=== PATIENT | female | born 1945 | race Caucasian/White ===

== ENCOUNTER → 2024-01-06 09:25 | Outpatient (REF) | payer MEDICARE, OTHER, SELFPAY | LOC: WDC 09:25 | PROVIDERS: ATTENDING PHYSICIAN Physician Assistant | DX: R92.8 Other abnormal and inconclusive findings on diagnostic imaging of breast (principal); N63.20 Unspecified lump in the left breast, unspecified quadrant | CPT/HCPCS: 76642; 77062; 77066 ==

== ENCOUNTER → 2024-01-13 11:18 | Outpatient (REF) | payer MEDICARE, OTHER, SELFPAY | LOC: WDC 11:18 | PROVIDERS: ATTENDING PHYSICIAN Physician Assistant | DX: N63.22 Unspecified lump in the left breast, upper inner quadrant (principal) | CPT/HCPCS: 88305; 19083; 77065; 88341; 88360; A4648 ==

== ENCOUNTER → 2024-01-27 09:40 | Outpatient (REF) | payer MEDICARE, OTHER, SELFPAY | LOC: HWRAD 09:40 | PROVIDERS: FAMILY PHYSICIAN Physician Assistant | DX: D17.21 Benign lipomatous neoplasm of skin and subcutaneous tissue of right arm (principal); R22.31 Localized swelling, mass and lump, right upper limb | CPT/HCPCS: 76882 ==

== ENCOUNTER 2024-03-23 22:45 | Emergency (ER) | payer MEDICARE, OTHER, SELFPAY ==
[2024-03-23 22:48] VITALS: BP 149/71
[2024-03-24 00:12] VITALS: BP 114/69
[2024-03-24 00:16] VITALS: BP 114/69
[2024-03-24 00:34] LABS: % Basophils 0.3 % (0-2); % Eosinophils 3.9 % (0-6); % Immature Granulocytes 1.5 % (0-0.5); % Lymphocytes 6.8 % (20.5-51.1); % Monocytes 10.9 % (1.7-9.3); % Neutrophils 76.6 % (42.2-75.2); Absolute Eosinophils 0.4 10^3/uL (0-0.7); Absolute Immature Granulocytes 0.2 10^3/uL (0-0.05); Absolute Lymphocytes 0.7 10^3/uL (1.2-3.4); Absolute Monocytes 1.1 10^3/uL (0.1-0.6); Absolute Neutrophils 7.8 10^3/uL (1.4-6.5); Hematocrit 37.5 % (37.0-47.0); Hemoglobin 12.9 g/dL (12.0-16.0); Mean Corp Hgb Conc. 34.4 g/dL (33.0-37.0); Mean Corpuscular Hgb 29.9 pg (27.0-31.0); Mean Platelet Volume 10.3 fL (7.4-10.4); Nucleated Red Blood Cells % 0 %; Platelet Count 219 10^3/uL (130-400); Red Blood Cell Count 4.31 10^6/uL (4.20-5.40); Red Cell Dist. Width 13.5 % (11.5-14.5); White Blood Cell Count 10.1 10^3/uL (4.8-10.8)
[2024-03-24 00:50] LABS: ALT (SGPT) 21 U/L (0-35); AST (SGOT) 25 U/L (14-36); Albumin 4.3 g/dl (3.5-5.0); Alkaline Phosphatase 97 U/L (38-126); Blood Urea Nitrogen 15 mg/dl (7-17); Calcium 10.1 mg/dl (8.4-10.2); Carbon Dioxide 28 mmol/L (22-30); Chloride 101 mmol/L (98-107); Glucose 135 mg/dl (70-99); Potassium 3.9 mmol/L (3.5-5.1); Sodium 138 mmol/L (135-145); Total Bilirubin 0.3 mg/dl (0.2-1.3); Total Protein 6.4 g/dl (6.3-8.2); eGFR > 60.00
[2024-03-24 01:00] VITALS: BP 114/70
--- NOTE | 2024-03-24 01:03 | ED.GENMED ---
History of Present Illness
General
Chief Complaint: Chest Pain
Source: patient
Exam Limitations: none
Time Seen by Provider: 03/24/24 00:27
Nursing documentation reviewed up to this point in time: agreed with
History of Present Illness
History of Present Illness:
This is a 78-year-old woman who has history of well-controlled COPD, history of anxiety, GERD, psoriasis and recently diagnosed with breast cancer having undergone left breast lumpectomy, left axillary node biopsy February 18, 2024. Following with [facility]. She reports unremarkable follow-up visit earlier today. She is planned to initiate 3-week course of radiation as well as 5-year course of tamoxifen.
Breast cancer reportedly hormone responsive, HER2 negative. Axillary lymph nodes negative.
She has been feeling well, was visiting her son fuentes and while driving home around 9:30 PM she developed somewhat abrupt onset of left lateral lower chest discomfort that radiated to her back and to her left shoulder, initially mild in nature,
worse with deep breath, worse with standing up as well as worse with lying supine. Left lateral chest pain seemed much worse after lying down to bed and then upon getting up out of bed she had difficulty standing up straight due to increased pain.
Pain was worse with deep breath but she denies feeling short of breath, no cough, no palpitations, no dizziness nor lightheadedness, no nausea or vomiting. No abdominal pain nor flank pain.
No history of similar episodes of pain in the past.
She denies leg pain or swelling. No recent travel.
Her daily medications include: Lexapro, omeprazole, atorvastatin, co-Q10. 1 month ago she began acitretin for psoriasis.
Prior history of smoking, quit many years ago.
No history of CAD nor history of thromboembolism.
Past History
Past History
ED Past Medical History: Cancer (Left breast cancer January 2024), COPD, Hypercholesterolemia, Other (Psoriasis) and Other (Osteoporosis)
ED Past Surgical History: Gynecological (Left breast lumpectomy January 2024)
Social History
Tobacco: Former smoker
Alcohol: Occasional
Drug: None
Personal:
Living: alone
Employment: Retired
Family History
Family History: Other (Noncontributory)
Phy Exam
Physical Exam
Physical Exam:
GENERAL: Alert , in no apparent distress. 78-year-old woman appears her stated age, bright and alert, pleasant, appears in no acute distress. Son is accompanying.
EYE: anicteric
NECK: Supple, nontender, no meningismus, no significant adenopathy. No JVD.
ENT: oral mucosa is moist. No rhinorrhea.
CARDIAC: Regular rate and rhythm. no murmur. No rub.
LUNGS: no acute respiratory distress, scant dry rales bilateral bases otherwise clear to auscultation. Moderate tenderness to palpation left Jose Manuel-lateral lower costal margin. Palpation seems to exactly reproduce patient's pain complaint.
ABDOMEN: Soft, nondistended, without focal tenderness, no r/g, no cvat. normoactive BS.
NEUROLOGICAL: Alert and oriented x3, no focal neuro deficits.
SKIN: Warm and dry, normal color, skin intact. Mildly erythematous confluent slightly raised patch to upper back the patient states is consistent with her psoriasis. This rash is nontender.
MUSCULOSKELETAL: No C/C/E. peripheral pulses are full and equal b/l. No palpable tenderness.
PSYCH: Normal and appropriate interaction.
Scores
Heart Score for Chest Pain Patients
STEMI patient?: No
History: Slightly or Non-Suspicious
ECG: Normal
Age: >/= 65 years
Risk Factors: No Risk Factors
Troponin: </= Normal Limit
Heart Score for Chest Pain Patients: 2
Heart Score Risk: 2.5% MACE over next 6 weeks
Course
Orders/Labs/Results
Orders:
Orders
03/23/24 22:52
ECG [Electrocardiogram (*1)] Urgent
Reason for Study: Chest Pain
EKG- Treatment ONCE
03/24/24 00:24
Complete Blood Count/With Diff Urgent
Troponin I Urgent
03/24/24 00:25
Comprehensive Metabolic Panel Urgent
03/24/24 00:28
CR Chest - 2 Views Urgent
Comment:
Reason For Exam: chest pain
03/24/24 01:06
D-Dimer Urgent
03/24/24 01:59
Urinalysis Reflex To Culture Urgent
Date Specimen was Collected: 03/24/24
Time Specimen was Collected: 01:42
03/24/24 02:45
Ketorolac [Toradol] 15 mg IV NOW STA
Abnormal Lab Results
03/24/24 03/24/24 03/24/24
00:25 01:59
Abs Immat Gran (auto) 0.2 H 10^3/uL
(0-0.05)
Absolute Neuts (auto) 7.8 H 10^3/uL
(1.4-6.5)
Absolute Lymphs (auto) 0.7 L 10^3/uL
(1.2-3.4)
Absolute Monos (auto) 1.1 H 10^3/uL
(0.1-0.6)
Immature Gran % 1.5 H %
(0-0.5)
Neutrophils % 76.6 H %
(42.2-75.2)
Lymphocytes % 6.8 L %
(20.5-51.1)
Monocytes % 10.9 H %
(1.7-9.3)
Glucose 135 H mg/dl
(70-99)
Urine Bilirubin 1+ A
(Negative)
03/24/24 00:24
03/24/24 00:25
Vital Signs
Initial and Last Documented VS:
Initial Vital Signs
Temp Pulse Resp BP Pulse Ox
99.5 F 76 18 149/71 93
03/23/24 22:48 03/23/24 22:48 03/23/24 22:48 03/23/24 22:48 03/23/24 22:48
Last Documented Vital Signs
Temp Pulse Resp BP Pulse Ox
97.9 F 52 17 105/56 95
03/24/24 00:16 03/24/24 04:30 03/24/24 04:30 03/24/24 04:00 03/24/24 00:16
MDM/Problems Addressed
Differential Diagnosis Includes:
Acute pleuritic type left anterolateral lower chest discomfort. Concern for acute pleurisy, pneumothorax, pneumonia, chest wall pain.
ACS is much less likely.
No prior history of thromboembolism but recently diagnosed with breast cancer thus must consider.
Thus far labs are unremarkable. EKG is unremarkable. Troponin is pending.
Chest x-ray shows mild interstitial disease otherwise unremarkable.
Will check D-dimer.
Recently began tretinoin medication for psoriasis. Upon my review of this medication, no report of increased risk of thromboembolism nor CAD.
Chronic conditions affecting care: Cancer
*Radiology
Radiology exam reviewed: preliminary read by ED provider (Chest x-ray is unremarkable. Clear lung ramos.)
*Pulse Oximetry
Patient hypoxic: no
*EKG
Interpreted by ED Provider?: Yes
Interpretation: normal
Comparison EKG: no changes (Unchanged from previous 2010)
Rate: normal
Rhythm: sinus
[place]: normal axis
Interval: normal interval
QRS Pattern: normal QRS
Ischemia: no ischemia
*C[facility] [employer] Interpretation
Rate: normal
Interpretation: normal
Rhythm: sinus
*Critical Care Note
Total Time (30-74mins, 75-104mins- exclusive of procedures): Not Applicable
Update Note
Update Note:
03/24/2024 02:15 AM
D-dimer is negative. Troponin is negative.
Urinalysis is unremarkable.
Patient resting comfortably but continues with some left lateral chest discomfort most noted with deep breath. Will trial a dose of Toradol and continue to observe.
03/24/2024 04:00 AM
Patient reports complete relief of pain after an IV dose of Toradol. Resting comfortably.
I suspect an element of pleurisy versus left lateral chest wall musculoskeletal pain.
Recommend continuing NSAID as needed for pain, ibuprofen, 400 mg every 6-8 hours as needed. Local moist heat.
Prompt follow-up with PCP versus oncologist.
Return precautions discussed.
ED Attending Note
-
Portions of this chart may have been created with voice recognition software.� Occasional wrong word or��sound alike� substitutions may have occurred due to the inherent limitations of voice recognition software.
Discharge Plan
Departure
Patient Disposition: Home (Routine Discharge)
Date of Disposition: 03/24/24
Time of Disposition: 04:07
Patient with high blood pressure during this ER visit?: No
Condition: Good
Discharge Problem:
pleuritic left chest pain
Instructions: Pleuritic Chest Pain ED
Prescriptions:
No Action
alendronate 70 MG tablet
70 mg PO Q7D
fluoxetine 10 MG capsule
10 mg PO PRN PRN (Reason: anxiety)
docosahexaenoic acid-epa 1 CAP capsule
2 cap PO DAILY
Unknown Calcium W/ Vitamin D
2 tab PO DAILY
Referrals:
Jona Villarreal, DO [Family Provider] - Call in 1-3 days for appt
Activity Restrictions/Additional Instructions:
You may take ibuprofen, 400 mg every 6-8 hours as needed for left lateral chest discomfort. Applying local heat may be comforting as well.
Avoid strenuous activity, lifting.
Follow-up with your PCP versus oncologist for recheck.
Interventions
Interventions:
*Risk Screen - Suicide Last Done: 03/23/24 22:48
*General Assessment Last Done: 03/23/24 22:48
*Neglect/Abuse Screening Last Done: 03/23/24 22:48
ED- Fall Risk Assessment Last Done: 03/24/24 02:53
*ED COVID-19 Vaccine History Last Done: 03/24/24 02:53
*Nursing Disposition Last Done: 03/24/24 04:45
ED- Cardiac Assessment Last Done: 03/24/24 00:27
Discharge Date and Time
Discharge Date/Time: 03/24/24 04:46
Print Language: KINYARWANDA
[2024-03-24 01:04] LABS: Troponin I < 0.012 ng/ml
[2024-03-24 02:00] VITALS: BP 134/58
[2024-03-24 02:09] LABS: Urine Albumin Negative (Neg - Trace); Urine Bilirubin 1+ (Negative); Urine Character Clear (Clear); Urine Color Yellow; Urine Glucose Negative (Negative); Urine Ketone Negative (Negative); Urine Leukocyte Negative (Negative); Urine Nitrite Negative (Negative); Urine Occult Blood Negative (Negative); Urine Urobilinogen Negative (Neg - 1+)
[2024-03-24 02:15] LABS: D-Dimer < 0.27 ug/mlFEU (0.00-0.50)
[2024-03-24] MEDS: TORADOL 15 MG IV (02:49)
[2024-03-24 03:00] VITALS: BP 99/54
[2024-03-24 04:00] VITALS: BP 105/56
== END 2024-03-24 04:46 | disposition home or self-care (01) ==
LOC: EMR 22:45
PROVIDERS: EMERGENCY PHYSICIAN Emergency Medicine; FAMILY PHYSICIAN Family Medicine
DX: R07.81 Pleurodynia (principal); J44.9 Chronic obstructive pulmonary disease, unspecified; F41.9 Anxiety disorder, unspecified; K21.9 Gastro-esophageal reflux disease without esophagitis; Z87.891 Personal history of nicotine dependence
CPT/HCPCS: 99285; 96374; 71046; 80053; 81003; 84484; 85025; 85379; 93005

== ENCOUNTER 2024-08-18 13:23 | Emergency (ER) | payer MEDICARE, OTHER, SELFPAY ==
[2024-08-18 13:26] VITALS: BP 146/68
--- NOTE | 2024-08-18 13:34 | ED.GENMED ---
ED Provider Triage
<Austyn Elise PA-C - Last Filed: 08/18/24 13:35>
-
Patient seen by provider in Triage?: Seen in Triage
78-year-old female with history of breast cancer presents in referral from urgent care for bilateral leg swelling. She was sent in to evaluate for potential DVTs in her leg. She has history of COPD and denies any increased shortness of breath. No
chest pain.
Vital signs are stable. Start workup with labs including BNP troponin EKG. Ultrasounds of the legs ordered
Patient seen by medical provider in triage. Warrants further assessment
History of Present Illness
<Austyn Elise PA-C - Last Filed: 08/18/24 13:35>
General
Chief Complaint: DVT/Possible Blood Clot
Time Seen by Provider: 08/18/24 17:27
<Danya Esposito PA-C - Last Filed: 08/19/24 01:11>
General
Source: patient and family
Exam Limitations: none
History of Present Illness
History of Present Illness:
78yoF with a history of psoriasis, hyperlipidemia, and breast cancer (finished radiation a few months ago) presenting with her daughter for evaluation of bilateral leg swelling. She woke up this morning and noticed that both of her ankles were
swollen. Symptoms seem worse on the right leg. She went to urgent care and she was referred to the ED to evaluate for a blood clot. Patient denies any trauma. No chest pain, shortness of breath, or cough. Of note, patient finished a course of
prednisone about 1 week ago for a psoriasis flare. She recently saw a meteorological technician earlier this month for cardiac clearance prior to an endoscopy/colonoscopy scheduled for next month. As a part of her cardiac workup, she had a stress echo
performed which was reportedly normal.
Past History
<Austyn Elise PA-C - Last Filed: 08/18/24 13:35>
Past History
ED Past Medical History: Cancer (Left breast cancer January 2024), COPD, Hypercholesterolemia, Other (Psoriasis) and Other (Osteoporosis)
ED Past Surgical History: Gynecological (Left breast lumpectomy January 2024)
Social History
Tobacco: Former smoker
Alcohol: Occasional
Drug: None
Personal:
Living: alone
Employment: Retired
Family History
Family History: Other (Noncontributory)
Phy Exam
<Danya Esposito PA-C - Last Filed: 08/19/24 01:11>
General Physical Exam
General Presentation: well appearing and no apparent distress
General age: appears stated age
General Skin: warm and dry
General Habitus: normal
General Mental: alert
ENT Exam
ENT Exam: normocephalic
Cardiovascular Exam
Cardiovascular Exam: regular rate/rhythm, no murmur and other (2+ pitting edema to bilateral lower extremities)
Pulmonary Exam
Pulmonary Exam: lungs clear, no respiratory distress, no rales, no crackles, no rhonchi and no wheezing
Nina Coma Scale
Eye Opening: Spontaneous
Verbal Response: Oriented
Motor Response: Obeys Commands
GCS Total Score: 15
Skin Exam
Skin Exam: warm/dry and other (Diffuse erythema/dermatitis noted consistent with reported psoriasis flare)
Psychiatric Exam
Psychiatric Exam: normal mood/affect
Course
<Austyn Elise PA-C - Last Filed: 08/18/24 13:35>
Orders/Labs/Results
Orders:
Orders
08/18/24 13:31
Venous Doppler Lwr Ext Bilat [US Periph Venous LOWER Ext Ean] Urgent
Comment:
Reason For Exam: swelling
08/18/24 13:33
Electrocardiogram (*1) Urgent
Reason for Study: Shortness of Breath
EKG- Treatment ONCE
08/18/24 13:41
Complete Blood Count/With Diff Urgent
Comprehensive Metabolic Panel Urgent
NT-proBNP Urgent
Troponin I Urgent
Abnormal Lab Results
08/18/24
13:41
MCHC 32.9 L g/dL
(33.0-37.0)
Absolute Lymphs (auto) 0.5 L 10^3/uL
(1.2-3.4)
Absolute Monos (auto) 0.8 H 10^3/uL
(0.1-0.6)
Absolute Eos (auto) 0.8 H 10^3/uL
(0-0.7)
Lymphocytes % 8.2 L %
(20.5-51.1)
Monocytes % 11.7 H %
(1.7-9.3)
Eosinophils % 12.0 H %
(0-6)
Glucose 104 H mg/dl
(70-99)
Total Protein 6.0 L g/dl
(6.3-8.2)
08/18/24 13:41
08/18/24 13:41
Vital Signs
Initial and Last Documented VS:
Initial Vital Signs
Temp Pulse Resp BP Pulse Ox
97.7 F 67 16 146/68 100
08/18/24 13:26 08/18/24 13:26 08/18/24 13:26 08/18/24 13:26 08/18/24 13:26
Last Documented Vital Signs
Temp Pulse Resp BP Pulse Ox
97.7 F 75 20 132/61 100
08/18/24 13:26 08/18/24 17:30 08/18/24 17:30 08/18/24 17:08 08/18/24 13:26
Sterlinglt;Danya Esposito PA-C - Last Filed: 08/19/24 01:11>
Orders/Labs/Results
Orders:
Orders
08/18/24 13:31
Venous Doppler Lwr Ext Bilat [US Periph Venous LOWER Ext Ean] Urgent
Comment:
Reason For Exam: swelling
08/18/24 13:33
Electrocardiogram (*1) Urgent
Reason for Study: Shortness of Breath
EKG- Treatment ONCE
08/18/24 13:41
Complete Blood Count/With Diff Urgent
Comprehensive Metabolic Panel Urgent
NT-proBNP Urgent
Troponin I Urgent
Abnormal Lab Results
08/18/24
13:41
MCHC 32.9 L g/dL
(33.0-37.0)
Absolute Lymphs (auto) 0.5 L 10^3/uL
(1.2-3.4)
Absolute Monos (auto) 0.8 H 10^3/uL
(0.1-0.6)
Absolute Eos (auto) 0.8 H 10^3/uL
(0-0.7)
Lymphocytes % 8.2 L %
(20.5-51.1)
Monocytes % 11.7 H %
(1.7-9.3)
Eosinophils % 12.0 H %
(0-6)
Glucose 104 H mg/dl
(70-99)
Total Protein 6.0 L g/dl
(6.3-8.2)
08/18/24 13:41
08/18/24 13:41
Vital Signs
Initial and Last Documented VS:
Initial Vital Signs
Temp Pulse Resp BP Pulse Ox
97.7 F 67 16 146/68 100
08/18/24 13:26 08/18/24 13:26 08/18/24 13:26 08/18/24 13:26 08/18/24 13:26
Last Documented Vital Signs
Temp Pulse Resp BP Pulse Ox
97.7 F 75 20 132/61 100
08/18/24 13:26 08/18/24 17:30 08/18/24 17:30 08/18/24 17:08 08/18/24 13:26
<Danya Esposito PA-C - Last Filed: 08/19/24 01:11>
MDM/Problems Addressed
Differential Diagnosis Includes:
78yoF here with bilateral leg swelling that started today. Sent here from urgent care to r/o DVT. Denies CP/SOB. Currently in a psoriasis flare and finished prednisone 1 week ago. Had a stress echo this month which was reportedly normal. Patient is
well-appearing in no acute distress. Vital signs are unremarkable including oxygen saturation of 100%. 2+ pitting edema noted in bilateral lower extremities. Extremities are warm and well-perfused. Diffuse erythema/dermatitis noted consistent
with report of psoriasis. No rales or murmur noted on exam. Differential diagnosis includes but is not limited to: DVT, dependent edema, edema related to psoriasis, side effect of prednisone, CHF
Workup obtained in triage. Lab work overall unremarkable including normal electrolytes and renal function. BNP within normal limits. No ischemic changes on EKG and troponin normal. Bilateral venous duplex negative for DVT. Low clinical
suspicion for CHF given normal BNP and recent normal stress echo within the past month. No indication for hospitalization at this time. Advised elevation and compression stockings to help with swelling. She was advised to follow-up with her PCP
and ED return precautions discussed including shortness of breath. Patient in agreement with plan and was discharged in stable condition.
<Danya Esposito PA-C - Last Filed: 08/19/24 01:11>
*EKG
Interpreted by ED Provider?: Yes
EKG Intrepretation Date: 08/19/24
Heart Rate: 64
Rate: normal
Rhythm: sinus
[place]: normal axis
QRS Pattern: normal QRS
Ischemia: no ischemia
*Critical Care Note
Total Time (30-74mins, 75-104mins- exclusive of procedures): Not Applicable
ED Attending Note
<Austyn Elise PA-C - Last Filed: 08/18/24 13:35>
-
Portions of this chart may have been created with voice recognition software.� Occasional wrong word or��sound alike� substitutions may have occurred due to the inherent limitations of voice recognition software.
Discharge Plan
Departure
Patient Disposition: Home (Routine Discharge)
Date of Disposition: 08/18/24
Time of Disposition: 17:53
Patient with high blood pressure during this ER visit?: No
Discharge Problem:
Bilateral lower extremity edema
Instructions: Swelling
Prescriptions:
No Action
alendronate 70 MG tablet
70 mg PO Q7D
fluoxetine 10 MG capsule
10 mg PO PRN PRN (Reason: anxiety)
docosahexaenoic acid-epa 1 CAP capsule
2 cap PO DAILY
Unknown Calcium W/ Vitamin D
2 tab PO DAILY
Referrals:
Jona Villarreal, DO [Family Provider] -
Activity Restrictions/Additional Instructions:
Elevate your legs and wear compression stockings to help with swelling.
Please follow-up with your family doctor next week. Return to the ER with any worsening symptoms or shortness of breath.
Interventions
Interventions:
*Risk Screen - Suicide Last Done: 08/18/24 13:29
*General Assessment Last Done: 08/18/24 18:17
*Neglect/Abuse Screening Last Done: 08/18/24 13:29
ED- Fall Risk Assessment Last Done: 08/18/24 18:17
*ED COVID-19 Vaccine History Last Done: 08/18/24 18:17
*Nursing Disposition Last Done: 08/18/24 18:17
ED- Cardiac Assessment Last Done: 08/18/24 15:14
ED- Pulmonary Assessment Last Done: 08/18/24 15:15
ED-Peripheral Vascular Assessment Last Done: 08/18/24 15:15
ED-Skin Assessment Last Done: 08/18/24 15:16
Discharge Date and Time
Discharge Date/Time: 08/18/24 18:18
Print Language: MOSOTHO
[2024-08-18 13:59] LABS: % Basophils 0.5 % (0-2); % Immature Granulocytes 0.2 % (0-0.5); % Lymphocytes 8.2 % (20.5-51.1); % Monocytes 11.7 % (1.7-9.3); % Neutrophils 67.4 % (42.2-75.2); Absolute Eosinophils 0.8 10^3/uL (0-0.7); Absolute Lymphocytes 0.5 10^3/uL (1.2-3.4); Absolute Monocytes 0.8 10^3/uL (0.1-0.6); Absolute Neutrophils 4.4 10^3/uL (1.4-6.5); Hematocrit 39.8 % (37.0-47.0); Hemoglobin 13.1 g/dL (12.0-16.0); Mean Corp Hgb Conc. 32.9 g/dL (33.0-37.0); Mean Corpuscular Volume 91.3 fL (81.0-99.0); Mean Platelet Volume 10.2 fL (7.4-10.4); Nucleated Red Blood Cells % 0 %; Platelet Count 189 10^3/uL (130-400); Red Blood Cell Count 4.36 10^6/uL (4.20-5.40); Red Cell Dist. Width 14.2 % (11.5-14.5); White Blood Cell Count 6.6 10^3/uL (4.8-10.8)
[2024-08-18 14:07] LABS: ALT (SGPT) 25 U/L (0-35); AST (SGOT) 31 U/L (14-36); Albumin 4.1 g/dl (3.5-5.0); Alkaline Phosphatase 77 U/L (38-126); Blood Urea Nitrogen 9 mg/dl (7-17); Carbon Dioxide 27 mmol/L (22-30); Chloride 106 mmol/L (98-107); Glucose 104 mg/dl (70-99); Potassium 3.9 mmol/L (3.5-5.1); Sodium 140 mmol/L (135-145); Total Bilirubin 0.7 mg/dl (0.2-1.3); eGFR > 60.00
[2024-08-18 14:18] LABS: NT-proBNP 166 pg/ml; Troponin I < 0.012 ng/ml
[2024-08-18 15:09] VITALS: BP 128/62
[2024-08-18 17:08] VITALS: BP 132/61
== END 2024-08-18 18:18 | disposition home or self-care (01) ==
LOC: EMR 13:23
PROVIDERS: Physician Assistant; EMERGENCY PHYSICIAN Emergency Medicine; FAMILY PHYSICIAN Family Medicine
DX: R60.0 Localized edema (principal); E78.00 Pure hypercholesterolemia, unspecified; J44.9 Chronic obstructive pulmonary disease, unspecified; M81.0 Age-related osteoporosis without current pathological fracture; L40.9 Psoriasis, unspecified; Z85.3 Personal history of malignant neoplasm of breast; Z87.891 Personal history of nicotine dependence; Z92.3 Personal history of irradiation
CPT/HCPCS: 99284; 80053; 83880; 84484; 85025; 93005; 93970

== ENCOUNTER 2024-10-31 16:29 | Observation (INO) | payer MEDICARE, OTHER, SELFPAY ==
[2024-10-31] VITALS (10 sets, daily range): BP systolic 100–146; BP diastolic 61–87; BMI 26.2
[2024-10-31 11:30] LABS: % Basophils 0.6 % (0-2); % Eosinophils 5.1 % (0-6); % Immature Granulocytes 0.3 % (0-0.5); % Lymphocytes 8.4 % (20.5-51.1); % Monocytes 9.7 % (1.7-9.3); % Neutrophils 75.9 % (42.2-75.2); Absolute Eosinophils 0.4 10^3/uL (0-0.7); Absolute Lymphocytes 0.6 10^3/uL (1.2-3.4); Absolute Monocytes 0.7 10^3/uL (0.1-0.6); Absolute Neutrophils 5.2 10^3/uL (1.4-6.5); Hematocrit 38.3 % (37.0-47.0); Hemoglobin 12.8 g/dL (12.0-16.0); Mean Corp Hgb Conc. 33.4 g/dL (33.0-37.0); Mean Corpuscular Hgb 30.2 pg (27.0-31.0); Mean Corpuscular Volume 90.3 fL (81.0-99.0); Mean Platelet Volume 9.7 fL (7.4-10.4); Nucleated Red Blood Cells % 0 %; Platelet Count 254 10^3/uL (130-400); Red Blood Cell Count 4.24 10^6/uL (4.20-5.40); Red Cell Dist. Width 14.4 % (11.5-14.5); White Blood Cell Count 6.8 10^3/uL (4.8-10.8)
[2024-10-31 11:44] LABS: ALT (SGPT) 13 U/L (0-35); AST (SGOT) 21 U/L (14-36); Albumin 3.7 g/dl (3.5-5.0); Alkaline Phosphatase 78 U/L (38-126); Blood Urea Nitrogen 14 mg/dl (7-17); Calcium 8.9 mg/dl (8.4-10.2); Carbon Dioxide 28 mmol/L (22-30); Chloride 110 mmol/L (98-107); Glucose 119 mg/dl (70-99); Sodium 143 mmol/L (135-145); Total Bilirubin 0.4 mg/dl (0.2-1.3); Total Protein 5.8 g/dl (6.3-8.2); eGFR > 60.00
--- NOTE | 2024-10-31 11:59 | ED.GENMED ---
History of Present Illness
General
Chief Complaint: Numbness
Time Seen by Provider: 10/31/24 11:59
History of Present Illness
History of Present Illness:
TIME OF INITIAL ENCOUNTER: 12:30 PM
HPI: Patient presents with left facial numbness, left hand numbness associated with left hand swelling along with achiness in the left upper extremity more proximally. Later, she developed pins and needle sensation in the left foot. She also had a
subconjunctival hemorrhage that she noted today affecting her left eye which she has had in the past. She has a history of breast cancer on 'hormone blocking therapy' she no longer drinks alcohol; used to drink alcohol heavily.
EXAM:
GENERAL: Well appearing in no distress
HEENT: Moist oral mucosa
CARDIOVASCULAR: No murmurs, normal heart rate, regular rhythm, No chest wall tenderness
PULMONARY: No respiratory distress, breath sounds are clear and equal
ABDOMEN: Soft with no peritoneal signs, no tenderness
NEUROLOGIC: Excellent strength all extremities, no coordination deficits, excellent strength in the face, no sensory deficits to the face or extremities
PSYCHIATRIC: Appropriate mental status, normal insight and judgement
EXTREMITIES: Nontender, minimal focal hand swelling with no clinical evidence for DVT, moves all extremities equally
SKIN: No rash, no lesions
NUMBER AND COMPLEXITY OF PROBLEMS ADDRESSED AT THE ENCOUNTER
� Chronic conditions affecting care: Breast cancer, smoker
� Acute Exacerbation and/or Progression of Chronic Illness: This is an acute problem
� Differential Diagnosis includes: Nonspecific paresthesias, TIA/CVA, B12 deficiency less likely as her MCV is normal and no longer drinks alcohol
AMOUNT AND/OR COMPLEXITY OF DATA TO BE REVIEWED AND ANALYZED
� I performed an independent evaluation of and my interpretation is:
EKG:
CT: CAT scan of the brain shows no acute abnormality
X-rays:
Laboratory Studies: CBC unremarkable, chemistries also unremarkable
Other:
� Review of other/old records: The patient was seen here 2 and half months ago with lower extremity swelling and at that time ultrasound imaging was negative for DVT.
� Clinical information was obtained by an independent historian: I spoke to family at bedside
� Prescriptions/Medications Considered but not given:
� Further testing considered but not performed:
RISK OF COMPLICATIONS AND/OR MORBIDITY OR MORTALITY OF PATIENT MANAGEMENT
� Social determinants of health affecting care: Lives at home
� Discussion with other providers:
� Escalation of care including admission/observation vs risk of discharge considered: Unclear etiology of patient's initial symptoms. I discussed case with Dr. Rodriguez (neuro).
ANY OTHER UPDATES:
2:30 PM: I reassessed patient. The patient states that her symptoms brought initially improved. She never had any sensory or motor deficits. Unclear etiology of patient's symptoms. She questions if this could be medication related which I
suspect is less likely given the fact that is unilateral. She does not want to wait for neurology to evaluate her and feels comfortable going home but will return here if worse.
Past History
Past History
ED Past Medical History: Cancer (Left breast cancer January 2024), COPD, Hypercholesterolemia, Other (Psoriasis) and Other (Osteoporosis)
ED Past Surgical History: Gynecological (Left breast lumpectomy January 2024)
Social History
Tobacco: Former smoker
Alcohol: Occasional
Drug: None
Personal:
Living: alone
Employment: Retired
Family History
Family History: Other (Noncontributory)
Phy Exam
Physical Exam
Physical Exam:
See HPI
Course
Orders/Labs/Results
Orders:
Orders
10/31/24 11:14
CT Head W/o Iv Contrast Urgent
Comment:
Reason For Exam: numbness/tingling left arm, leg
10/31/24 11:18
Complete Blood Count/With Diff Urgent
Comprehensive Metabolic Panel Urgent
Abnormal Lab Results
10/31/24
11:18
Absolute Lymphs (auto) 0.6 L 10^3/uL
(1.2-3.4)
Absolute Monos (auto) 0.7 H 10^3/uL
(0.1-0.6)
Neutrophils % 75.9 H %
(42.2-75.2)
Lymphocytes % 8.4 L %
(20.5-51.1)
Monocytes % 9.7 H %
(1.7-9.3)
Chloride 110 H mmol/L
(98-107)
Glucose 119 H mg/dl
(70-99)
Total Protein 5.8 L g/dl
(6.3-8.2)
10/31/24 11:18
10/31/24 11:18
Vital Signs
Initial and Last Documented VS:
Initial Vital Signs
Temp Pulse Resp BP Pulse Ox
36.8 C 75 16 138/85 97
10/31/24 11:04 10/31/24 11:04 10/31/24 11:04 10/31/24 11:04 10/31/24 11:04
Last Documented Vital Signs
Temp Pulse Resp BP Pulse Ox
36.8 C 75 16 138/85 97
10/31/24 11:04 10/31/24 11:04 10/31/24 11:04 10/31/24 11:04 10/31/24 11:04
*Critical Care Note
Total Time (30-74mins, 75-104mins- exclusive of procedures): Not Applicable
ED Attending Note
-
Portions of this chart may have been created with voice recognition software.� Occasional wrong word or��sound alike� substitutions may have occurred due to the inherent limitations of voice recognition software.
Discharge Plan
Departure
Patient Disposition: Home (Routine Discharge)
Date of Disposition: 10/31/24
Time of Disposition: 14:29
Patient with high blood pressure during this ER visit?: Yes
Discharge Problem:
Paresthesia
Instructions: Paresthesia (DC), BLOOD PRESSURE
Prescriptions:
No Action
alendronate 70 MG tablet
70 mg PO Q7D
fluoxetine 10 MG capsule
10 mg PO PRN PRN (Reason: anxiety)
docosahexaenoic acid-epa 1 CAP capsule
2 cap PO DAILY
Unknown Calcium W/ Vitamin D
2 tab PO DAILY
Referrals:
Jona Villarreal DO [Family Provider] -
Activity Restrictions/Additional Instructions:
The cause of your symptoms is unclear. Basic blood work is unremarkable. CAT scan of the brain is unremarkable. Return here if worse or other concerns.
Interventions
Interventions:
*Risk Screen - Suicide Last Done: 10/31/24 11:04
*General Assessment Last Done: 10/31/24 11:04
*ED COVID-19 Vaccine History Last Done: 10/31/24 11:04
Discharge Date and Time
Print Language: LITHU[place]
--- NOTE | 2024-10-31 15:29 | HPS.HSE ---
Addendum entered and electronically signed by Phillip Melgar MD 10/31/24 16:28:
I saw and examined the patient.
The PARTS INSPECTOR's note was reviewed and I agree with the note.
79-year-old female past medical history of breast cancer, history of alcohol abuse, GERD, COPD, hyperlipidemia, chronic constipation who is presenting with complaint of left facial and hand numbness associated with swelling and aching in the left
upper extremity. Also had some [id number] in the left foot. Patient has history of breast cancer and is on antihormonal therapy. Patient states that her symptoms remain the same. States overall just not feeling well. Patient was evaluated
in the ER with neurology was recommending MRI of the brain and EEG.
Comment:
General: No Apparent Distress, Comfortable and Conversant;
HEENT: NormoCephalic, Anicteric, Moist mucous membranes, [place] Conjunctivae, No Ptosis, Neck Nontender and Other (Slight subconjunctiva hemorrhage inner canthus EOMs intact)
Respiratory: Clear; No Wheezes, Rales or Rhonchi
Cardiac: S1/S2 and Regular Rhythm; No Murmur, Rub, Gallop or Peripheral Edema
GI: Soft, Non Tender, Non Distended, Normal Bowel Sounds and No Hepatosplenomegaly
Musculoskeletal: No Clubbing, No Cyanosis and No Edema
Skin: Warm and Dry; No Rash or Jaundice
Neuro: AO x 3, No Motor Deficits, Nonfocal/grossly intact, Cranial Nerves Intact, No Sensory Deficits, Tremors and Other (Tingling to dorsal hand second and third metacarpal, left upper proximal humerus and left leg/foot); No Slurred Speech, Facial
Droop or Sedated
Psych: Calm
Impression
Left-sided numbness concern for partial seizure versus rule out CVA
Left breast cancer on chemotherapy
Hyperlipidemia
GERD
COPD
Plan
CT head negative for acute pathology
Neurochecks
MRI of the brain with and without contrast. If positive will need angiogram studies
EEG
Continue home meds
Neurology recs
Monitor on telemetry
DVT prophylaxis SCDs
Discussed with patient daughter at bedside in details
Original Note:
Family Physician
-
Family Physician: Jona Villarreal
Chief Complaint
-
Tingling face, left dorsal hand second and third metacarpal, left upper proximal humerus and left leg/foot
History of Present Illness
79-year-old female complaining of left facial numbness, left hand numbness associated with left hand swelling at second and third meta carpal and aching in the left upper extremity. She also reports developing pins and needle sensations in her left
foot. She states prior to this she was getting a shower and felt dizzy and nauseous while in there and off balance. She also reports a recent subtle subconjunctival hemorrhage that she noted affecting her left eye which she has had it in the past.
Her daughter states she saw her at 9 AM and she seemed to be leaning more towards her left side while walking. She denies recent headache, runny nose, sore throat, headache, chest pain, palpitations, shortness breath, cough, abdominal pain,
nausea, vomiting, diarrhea, urinary symptoms.
She has history of left breast cancer Dx January 2024 is currently on hormone blocking therapy she reports no longer drinks alcohol, but used to drink heavily, COPD, former smoker, psoriasis, osteoporosis, anxiety, depression, GERD, chronic
constipation, seasonal allergies
Medical History
Past Medical History
Past Medical History: Reports Other
Additional Past Medical History:
Left breast cancer Dx January 2024 status postlumpectomy is currently on hormone blocking therapy tamoxifen
Former alcoholic stopped 2019
COPD
Former smoker
Psoriasis
Osteoporosis
Anxiety
Depression
GERD
Chronic constipation
Seasonal allergies
Past Surgical History: Reports Other
Additional Past Surgical History:
Hysterectomy with bladder lift
Wrist and elbow surgeries
Foot surgery
Tonsillectomy
Lumpectomy left breast
Social History
Tobacco: Former Smoker (50-year 1 pack a day)
Alcohol: Former (Former [place] 'sober 5 years)
Drug: Marijuana (Gummy at night)
Personal: Single
Living: Alone
Employment: Retired
Family History
Family History: Other (Sister history of stroke age 68, 2 brothers 70s both esophageal cancer heavy smokers and alcoholics, father [place] age 55, mother age 95 old age 1 brother living age 70 alcohol abuse)
Allergies / Home Medications
Allergies reflects when Allergies were last updated in [facility].
Home Medications with original date entered in [facility]
Allergy/Medication List:
Allergies
Allergy/AdvReac Type Severity Reaction Status Date / Time
anastrozole Allergy Swelling Verified 10/31/24 11:10
exemestane Allergy Rash Verified 10/31/24 11:10
Home Medications
acitretin 25 mg capsule 25 mg PO DAILY 10/31/24
atorvastatin 20 mg tablet (Lipitor) 20 mg PO DAILY 10/31/24
denosumab 60 mg/mL subcutaneous syringe (Prolia) 60 mg SC [id number] 10/31/24
escitalopram oxalate 20 mg tablet (Lexapro) 20 mg PO DAILY 10/31/24
fexofenadine 180 mg tablet 180 mg PO DAILY 10/31/24
pantoprazole 40 mg tablet,delayed release (Protonix) 40 mg PO DAILY 10/31/24
polyethylene glycol 3350 17 gram oral powder packet (Miralax) 17 g PO BID 10/31/24
tamoxifen 20 mg tablet 20 mg PO DAILY 10/31/24
Review of Systems
-
History Source: Patient
A 12 point ROS was completed and negative except as noted: Yes
Constitutional: Denies Fever or Chills
EENT: Reports Other (Left-sided facial numbness tingling); Denies Sore Throat or Runny Nose
Respiratory: Denies Cough or Trouble Breathing
Cardiac: Denies Chest Pain, Diaphoresis, Palpitations or Syncope
Abdomen/GI: Denies Abdominal Pain, Nausea, Vomiting, Diarrhea, Constipated, Black Stools or Anorexia
: Denies Dysuria, Frequency, Flank Pain, Incontinence, Difficulty Voiding or Dark Urine
Musculoskeletal: Reports Other (Tingling to dorsal hand second and third metacarpal, left upper proximal humerus and left leg/foot); Denies Joint Pain, Muscle Pain or Muscle Stiffness
Skin: Denies Itching or Rash
Neurological: Reports Dizzy (When in shower today) and Weakness (Daughter reported weakness leaning to left when walking); Denies Headache
Endocrine: Reports No Symptoms
Hematologic/Lymphatic: Reports No Symptoms
Psych: Reports Calm
Physical Exam
Vital Signs
Vital Signs
Temp Pulse Resp BP Pulse Ox
98.3 F 75 16 138/85 97
10/31/24 11:04 10/31/24 11:04 10/31/24 11:04 10/31/24 11:04 10/31/24 11:04
Physical Exam
General: No Apparent Distress, Comfortable and Conversant; No Pain, Fever or Chills
HEENT: NormoCephalic, Anicteric, Moist mucous membranes, PERRLA, [place] Conjunctivae, No Ptosis, Neck Nontender and Other (Slight subconjunctiva hemorrhage inner canthus EOMs intact)
Respiratory: Clear; No Wheezes, Rales or Rhonchi
Cardiac: S1/S2 and Regular Rhythm; No Murmur, Rub, Gallop or Peripheral Edema
Breast: Deferred by me
GI: Soft, Non Tender, Non Distended, Normal Bowel Sounds and No Hepatosplenomegaly
Rectal: Deferred by Provider
Genito-urinary: Deferred by me
Musculoskeletal: No Clubbing, No Cyanosis and No Edema
Skin: Warm and Dry; No Rash or Jaundice
Neuro: AO x 3, No Motor Deficits, Nonfocal/grossly intact, Cranial Nerves Intact, No Sensory Deficits, Tremors and Other (Tingling to dorsal hand second and third metacarpal, left upper proximal humerus and left leg/foot); No Slurred Speech, Facial
Droop or Sedated
Psych: Calm
Laboratory Results
-
10/31/24 11:18
10/31/24 11:18
Laboratory Results
Total Bilirubin 0.4 mg/dl (0.2-1.3) 10/31/24 11:18
AST 21 U/L (14-36) 10/31/24 11:18
ALT 13 U/L (0-35) 10/31/24 11:18
Alkaline Phosphatase 78 U/L (38-126) 10/31/24 11:18
Data Reviewed
-
CT Scan: Report Reviewed by me
Lab Data: Labs Reviewed by me
Impression/Plan
-
Impression/plan:
Observation telemetry
#Left face/hand numbness, left hand swelling concern for partial seizures(October vs CVA/TIA per neuro
-consult neurology
-MRI with and without contrast
-EEG routine
-Neurochecks every 4 hours
-Check B12
-Aspirin 81 mg daily, continue Lipitor 20 mg daily
-Check lipid profile, HgbA1c
-PT/OT/case management
-Tylenol as needed headache
CT head: No acute intracranial abnormality
#Left breast cancer Dx January 2024 is currently on hormone blocking therapy
-Continue tamoxifen 20 mg daily
#Former alcoholic-stopped 2019
she reports no longer drinks alcohol
#GERD
-Continue Protonix 40 mg daily
COPD-no acute exacerbation
#Former smoker
#Anxiety/depression
-Continue Lexapro 20 mg daily
#Psoriasis
-Hold as this can cause strokes acitretin
#Osteoporosis
-Patient gets Prolia 60 mg every 6 months
#HLD
Continue Lipitor 20 mg daily
#Seasonal allergies
Chrissie 180 mg daily
Chronic constipation
MiraLAX 17 g p.o. twice daily
DVT prophylaxis
SCDs
Full code
--- NOTE | 2024-10-31 15:39 | CON.NEURO ---
Addendum entered and electronically signed by Dominick Rodriguez MD 11/01/24 14:04:
history:
79-year-old female past medical history of breast cancer, history of alcohol abuse, GERD, COPD, hyperlipidemia, chronic constipation who is presenting with complaint event, beginning with left facial tingling/numbness, spread to her hand, felt her
left hand was swelling. it spread up her left arm, and then to her foot. In the ED, the symptoms resolved.
history of breast cancer on anti hormonal therapy;
exam:
AAOx3, speech clear, language intact
VFF, EOMI, face symmetric
full strength b/l UE/LE
sensation intact to touch
Original Note:
Neuro Assessment/Plan
Assessment
Simple partial seizure (October)
history of breast cancer
Plan
Advised MRI brain with and without contrast, routine EEG as inpatient vs outpatient
patient elects to be admitted observation for the workup
Consultation
Order
Date of Consultation: 10/31/24
Requesting Provider:
Reason for Consult:
Subjective/Objective
Subjective Data
Date of Service: October 31, 2024
Objective Data
Vital Signs
Temp Pulse Resp BP Pulse Ox
36.8 C 75 16 138/85 97
10/31/24 11:04 10/31/24 11:04 10/31/24 11:04 10/31/24 11:04 10/31/24 11:04
Lab Results
10/31/24 11:18
10/31/24 11:18
Sodium 143 mmol/L (135-145) 10/31/24 11:18
Potassium 4.0 mmol/L (3.5-5.1) 10/31/24 11:18
BUN 14 mg/dl (7-17) 10/31/24 11:18
Glucose 119 mg/dl (70-99) H 10/31/24 11:18
Calcium 8.9 mg/dl (8.4-10.2) 10/31/24 11:18
Patient Allergies
anastrozole Allergy (Verified 10/31/24 11:10)
Swelling
exemestane Allergy (Verified 10/31/24 11:10)
Rash
Medications
-
Home Medications
�Medication �Instructions �Recorded
acitretin 25 mg capsule 25 mg PO DAILY 10/31/24
atorvastatin 20 mg tablet (Lipitor) 20 mg PO DAILY 10/31/24
denosumab 60 mg/mL subcutaneous 60 mg SC [id number] 10/31/24
syringe (Prolia)
escitalopram oxalate 20 mg tablet 20 mg PO DAILY 10/31/24
(Lexapro)
fexofenadine 180 mg tablet 180 mg PO DAILY 10/31/24
pantoprazole 40 mg tablet,delayed 40 mg PO DAILY 10/31/24
release (Protonix)
polyethylene glycol 3350 17 gram 17 g PO BID 10/31/24
oral powder packet (Miralax)
tamoxifen 20 mg tablet 20 mg PO DAILY 10/31/24
[2024-10-31] MEDS: ASPIRIN 325 MG PO (17:08)
[2024-10-31] MEDS: MIRALAX 17 GRAMS PO (20:12)
--- NOTE | 2024-10-31 22:11 | PTCARENOTE ---
Received patient from ER. stable vitals. c/o slight numbness left side face/ feeling of pins/needles in left foot, saying ' better than before'. No other complaints. NO IV placed from ER. POC reviewed with patient.
[2024-11-01 07:28] LABS: % Basophils 0.7 % (0-2); % Eosinophils 8.9 % (0-6); % Immature Granulocytes 0.2 % (0-0.5); % Lymphocytes 12.2 % (20.5-51.1); % Monocytes 13.2 % (1.7-9.3); % Neutrophils 64.8 % (42.2-75.2); Absolute Eosinophils 0.4 10^3/uL (0-0.7); Absolute Lymphocytes 0.5 10^3/uL (1.2-3.4); Absolute Monocytes 0.6 10^3/uL (0.1-0.6); Absolute Neutrophils 2.8 10^3/uL (1.4-6.5); Hematocrit 37.6 % (37.0-47.0); Hemoglobin 12.5 g/dL (12.0-16.0); Mean Corp Hgb Conc. 33.2 g/dL (33.0-37.0); Mean Corpuscular Hgb 30.4 pg (27.0-31.0); Mean Corpuscular Volume 91.5 fL (81.0-99.0); Mean Platelet Volume 9.4 fL (7.4-10.4); Nucleated Red Blood Cells % 0 %; Platelet Count 220 10^3/uL (130-400); Red Blood Cell Count 4.11 10^6/uL (4.20-5.40); Red Cell Dist. Width 14.5 % (11.5-14.5); White Blood Cell Count 4.3 10^3/uL (4.8-10.8)
[2024-11-01 07:58] LABS: ALT (SGPT) 11 U/L (0-35); AST (SGOT) 19 U/L (14-36); Albumin 3.5 g/dl (3.5-5.0); Alkaline Phosphatase 62 U/L (38-126); Blood Urea Nitrogen 12 mg/dl (7-17); Calcium 8.4 mg/dl (8.4-10.2); Carbon Dioxide 25 mmol/L (22-30); Chloride 110 mmol/L (98-107); Estimated Creatinine Clearance 62 ml/min; Glucose 105 mg/dl (70-99); HDL Cholesterol 87 mg/dl; LDL Cholesterol, Calculated 89 mg/dl; Potassium 4.2 mmol/L (3.5-5.1); Sodium 140 mmol/L (135-145); Total Bilirubin 0.7 mg/dl (0.2-1.3); Total Cholesterol 196 mg/dl (50-199); Total Protein 5.4 g/dl (6.3-8.2); Triglyceride 102 mg/dl (10-149); Very Low Density Lipoprotein 20 mg/dl (0-30); eGFR > 60.00
[2024-11-01 08:00] VITALS: BP 153/66
[2024-11-01 08:45] LABS: Hepatitis C Antibody Negative (Negative); Vitamin B12 336 pg/ml (239-931)
[2024-11-01] MEDS: CLARITIN 10 MG PO (09:08)
[2024-11-01] MEDS: LOW STRENGTH ASPIRIN 81 MG PO (09:08)
[2024-11-01] MEDS: MIRALAX PO (09:08)
[2024-11-01] MEDS: LIPITOR 20 MG PO (09:08)
[2024-11-01] MEDS: VITAMIN B-12 1000 MCG PO (09:08)
[2024-11-01] MEDS: PROTONIX 40 MG PO (09:08)
[2024-11-01] MEDS: NOLVADEX 20 MG PO (09:09)
[2024-11-01 10:51] LABS: Glycohemoglobin (HgbA1c) 5.7 % (4.0-5.6)
--- NOTE | 2024-11-01 12:39 | W.PN.HOSP.TC ---
Today's Communication/Plan
-
await EEG
MRI brain pending
PT/OT
Neuro recs
cont asa for now
Assessment / Plan
Assessment / Plan
General: No Apparent Distress, Comfortable and Conversant;
HEENT: NormoCephalic, Anicteric, Moist mucous membranes, [place] Conjunctivae, No Ptosis, Neck Nontender and Other (Slight subconjunctiva hemorrhage inner canthus EOMs intact)
Respiratory: Clear; No Wheezes, Rales or Rhonchi
Cardiac: S1/S2 and Regular Rhythm; No Murmur, Rub, Gallop or Peripheral Edema
GI: Soft, Non Tender, Non Distended, Normal Bowel Sounds and No Hepatosplenomegaly
Musculoskeletal: No Clubbing, No Cyanosis and No Edema
Skin: Warm and Dry; No Rash or Jaundice
Neuro: AO x 3, No Motor Deficits, Nonfocal/grossly intact, Cranial Nerves Intact, No Sensory Deficits, Tremors and Other (Tingling to dorsal hand second and third metacarpal, left upper proximal humerus and left leg/foot); No Slurred Speech, Facial
Droop or Sedated
Psych: Calm
#Left face/hand numbness, left hand swelling concern for partial seizures(October vs CVA/TIA per neuro
-consult neurology
-MRI with and without contrast
-EEG routine
-Neurochecks every 4 hours
-Check B12 low and started on po supplementaiton
-Aspirin 81 mg daily, continue Lipitor 20 mg daily
-Check lipid profile, HgbA1c
-PT/OT/case management
-Tylenol as needed headache
-CT head: No acute intracranial abnormality
#Left breast cancer Dx January 2024 is currently on hormone blocking therapy
-Continue tamoxifen 20 mg daily
#Former alcoholic-stopped 2019
she reports no longer drinks alcohol
#GERD
-Continue Protonix 40 mg daily
COPD-no acute exacerbation
#Former smoker
#Anxiety/depression
-Continue Lexapro 20 mg daily
#Psoriasis
-Hold as this can cause strokes acitretin
#Osteoporosis
-Patient gets Prolia 60 mg every 6 months
#HLD
Continue Lipitor 20 mg daily
#Seasonal allergies
Chrissie 180 mg daily
Chronic constipation
MiraLAX 17 g p.o. twice daily
DVT prophylaxis
SCDs
Full code
PT/OT
Anticipated Discharge: Within 24 hours
Subjective/Interval History
-
Date of Service: November 01, 2024
states left cheek sensation has resolved
tolerating diet
states of pins/needles in left hand/left foot
Objective Data
-
Labs:
Laboratory Results
11/01/24
07:15
WBC 4.3 L
Hgb 12.5
Hct 37.6
Plt Count 220
Sodium 140
Potassium 4.2
Chloride 110 H
Carbon Dioxide 25
BUN 12
Creatinine 0.5 L
Glucose 105 H
Calcium 8.4
Total Bilirubin 0.7
AST 19
ALT 11
Alkaline Phosphatase 62
Vital Signs:
Vital Signs
Temp Pulse Resp BP Pulse Ox
98.0 F 58 16 153/66 96
11/01/24 08:00 11/01/24 08:00 11/01/24 08:00 11/01/24 08:00 11/01/24 08:00
I&O
10/31/24 11/01/24 11/02/24
06:59 06:59 06:59
Intake Total 480 / 480
Balance 480 / 480
--- NOTE | 2024-11-01 12:54 | EEG.RPT ---
Electroencephalogram Report
Recording
Date of EE11/01/24
Type of EEG: Routine
Length of EEG recordin minutes
Done with Video Recording: Yes
Patient Status: Inpatient
Recording Conditions: Awake, Drowsy and Asleep
Hyperventilation Performed: No
Photic Stimulation Performed: Yes
Report
LESS THAN 1 HOUR EEG REPORT
LESS THAN 1 HOUR EEG INTERPRETATION:
Unremarkable EEG for age
CLINICAL CORRELATION:
A normal EEG does not rule out a diagnosis of epilepsy. If clinical suspicion for seizure persists, a prolonged recording may be warranted.
Clinical correlation is advised.
METHODS:
A 21 channel digitized electroencephalogram (EEG) was performed using the 10/20 international system of electrode placement and one-lead of ECG recorded. Video was recorded. Persyst quantitative EEG analysis was performed.
ELECTROENCEPHALOGRAPHER IMPRESSION(S):
Quality of study
Good
Background
There was an unremarkable anterior-posterior voltage gradient of alpha frequency.
With eye opening the background activity changed to a low voltage mixture of frequencies.
There were no significant asymmetries of background activity noted.
Sleep
Drowsiness present
Photic Stimulation
Produced driving symmetrically in most flash frequencies
ECG
Normal sinus rhythm
[2024-11-01 13:01] VITALS: BP 137/71; PULSE 61; O2SAT 98
--- NOTE | 2024-11-01 13:49 | W.PN.NEURO.1 ---
Today's Communication / Plan
-
d/c home
no rx
Neuro Assessment/Plan
Assessment
Simple partial seizure (October)
ok to drive 'only an aura'
history of breast cancer
brain MRI imgs rev'd,
Plan
advised patient that with essentially normal studies, the likelihood of this happening again ~20%, if this recurs, she does not need to seek evaluation for each episode
this is not dangerous; if they become frequent/bothersome and she wants to be treated symptomatically, then she can follow up with neurology to start rx
Subjective/Objective
Subjective Data
Date of Service: November 01, 2024
patient feels well
Objective Data
Vital Signs
Temp Pulse Resp BP Pulse Ox
36.7 C 58 16 153/66 96
11/01/24 08:00 11/01/24 08:00 11/01/24 08:00 11/01/24 08:00 11/01/24 08:00
Lab Results
11/01/24 07:15
11/01/24 07:15
Sodium 140 mmol/L (135-145) 11/01/24 07:15
Potassium 4.2 mmol/L (3.5-5.1) 11/01/24 07:15
BUN 12 mg/dl (7-17) 11/01/24 07:15
Glucose 105 mg/dl (70-99) H 11/01/24 07:15
Calcium 8.4 mg/dl (8.4-10.2) 11/01/24 07:15
LDL Cholesterol, Calc 89 mg/dl 11/01/24 07:15
Vitamin B12 336 pg/ml (239-931) 11/01/24 07:15
Patient Allergies
anastrozole Allergy (Verified 10/31/24 11:10)
Swelling
exemestane Allergy (Verified 10/31/24 11:10)
Rash
Physical Exam
-
AAOx3, speech clear, language intact
VFF, EOMI, face symmetric
full strength b/l UE/LE
sensation intact to touch
--- NOTE | 2024-11-01 14:07 | W.DCSUMMARY ---
Discharge Summary
Discharge Data
Date of Admission: 10/31/24
Date of Discharge: 11/01/24
-
Pending Results: No
Hospital Course
� Female past medical history of breast cancer, former alcohol usage, GERD, COPD, anxiety, depression, psoriasis, osteoporosis, hyperlipidemia, chronic constipation who is presenting from home with complaints of left face, and, leg numbness.
Patient went CT head on admission which was found to be negative. Patient was eval by neurology. Patient was started on aspirin. Patient vitamin B12 level was low so was iron supplementation. Patient underwent MRI of the brain with and without
contrast and was found to be negative for acute stroke/pathology. EEG was found to be normal. Patient with diagnosis of simple partial seizure. Neurology discussed with the patient to seek treatment if symptoms becomes unmanageable as outpatient
otherwise no plan to start antiepileptic medication. Per neurology okay to drive. Patient was eval physical and Occupational Therapy. Outpatient therapy recommended.
Discharge Plan
-
Patient Disposition: Home with Home Care
Discharge Diagnosis/Procedures: Simple partial seizure
Vitamin B12 deficiency
Condition: Fair
Diet: Low Cholesterol
Activity: With assistance and As tolerated
Driving Restrictions: Not until seen by your Dr
Other Services: VN
Referrals:
Jona Villarreal DO [Family Provider] - in less than 1 week
Prescriptions:
New
cyanocobalamin (vitamin B-12) [Vitamin B-12] 1,000 mcg Tablet
1,000 mcg PO DAILY 30 Days Qty: 30 0RF
Continued
atorvastatin [Lipitor] 20 mg Tablet
20 mg PO DAILY
polyethylene glycol 3350 [Miralax] 17 gram Powder In Packet
17 g PO BID
fexofenadine [Chrissie] 180 mg Tablet
180 mg PO DAILY
acitretin 25 mg Capsule
25 mg PO DAILY
pantoprazole [Protonix] 40 mg Tablet,Delayed Release (Dr/Ec)
40 mg PO DAILY
tamoxifen 20 mg Tablet
20 mg PO DAILY
escitalopram oxalate [Lexapro] 20 mg Tablet
20 mg PO DAILY
Prolia 60 mg/mL Syringe
60 mg SC [id number]
Discharge Date and Time
Print Language: MALTESE
[2024-11-01 14:25] VITALS: BP 169/78; PULSE 65; O2SAT 100
--- NOTE | 2024-11-01 14:53 | CM ---
CM met with pt and dtr bedside and noted dc order
Pt resides alone in [facility] with 3 MARY
Pt is indep at baseline, denies DMEs, drives+ and works
PCP- Jona Villarreal
Rx- [facility]
PT eval outpt vs no needs
OT eval no needs
Pt declined outpt therapy or VN
RICHARDSON verbally reviewed- copy provided
Dtr bedside and will transport home
Discharge Disposition- home, no needs
[2024-11-01 15:05] VITALS: BP 135/70
== END 2024-11-01 15:07 | disposition home or self-care (01) ==
LOC: 1 ACUTE 16:29
PROVIDERS: Clinical Nurse Specialist Family Health; ADMITTING PHYSICIAN Hospitalist; CONSULT PHYSICIAN Psychiatry & Neurology Clinical Neurophysiology; EMERGENCY PHYSICIAN Emergency Medicine; FAMILY PHYSICIAN Family Medicine
DX: R56.9 Unspecified convulsions (principal); R20.0 Anesthesia of skin; M79.89 Other specified soft tissue disorders; Z85.3 Personal history of malignant neoplasm of breast; Z87.891 Personal history of nicotine dependence; R20.2 Paresthesia of skin; Z79.82 Long term (current) use of aspirin; Z79.899 Other long term (current) drug therapy; K21.9 Gastro-esophageal reflux disease without esophagitis; J44.9 Chronic obstructive pulmonary disease, unspecified; F41.9 Anxiety disorder, unspecified; F32.A Depression, unspecified; L40.9 Psoriasis, unspecified; M81.0 Age-related osteoporosis without current pathological fracture; J30.2 Other seasonal allergic rhinitis; K59.09 Other constipation; E53.8 Deficiency of other specified B group vitamins; F10.21 Alcohol dependence, in remission; Z82.3 Family history of stroke
CPT/HCPCS: 70450; 70553; 80053; 80061; 82607; 83036; 85025; 86803; 95816; 97162; 97165; 99285; A9575; G0378

== ENCOUNTER → 2025-05-11 09:00 | Outpatient (REF) | payer MEDICARE, OTHER, SELFPAY | LOC: RAD 09:00 | PROVIDERS: ATTENDING PHYSICIAN Nurse Practitioner Family; FAMILY PHYSICIAN Family Medicine | DX: M81.0 Age-related osteoporosis without current pathological fracture (principal) | CPT/HCPCS: 77080 ==